=== PATIENT | female | born 1995 | race Two or more races ===

== ENCOUNTER 2016-08-18 02:48 | Emergency (ER) | payer OTHER, MEDICAID ==
[2016-08-18 03:12] VITALS: PULSE 81; RESP 16; O2SAT 96
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
[2016-08-18 04:58] VITALS: BP 108/66; TEMP 97.9
== END 2016-08-18 04:58 | disposition home or self-care (01) ==
DX: S20.219A Contusion of unspecified front wall of thorax, initial encounter (principal); V47.6XXA Car passenger injured in collision with fixed or stationary object in traffic accident, initial encounter; Y92.410 Unspecified street and highway as the place of occurrence of the external cause